=== PATIENT | male | born 1980 | race Caucasian/White ===

== ENCOUNTER 2016-09-27 14:18 | Emergency (ER) | payer OTHER ==
[~2016-09-27] VITALS: Ht 182.9 cm; Wt 106.9 kg
[~2016-09-27 14:18] MED LIST: BENTYL20 MG PO; FLEXERIL5 MG PO; LATUDA40 MG PO; LEVOFLOXACIN750 MG PO; LOMOTIL TABLET1 EACH PO; MOBIC7.5 MG PO; MOTRIN600 MG PO; MOTRIN800 MG PO; NAPROSYN500 MG PO; NEURONTIN100 MG PO; NORCO 5/3251 TABLET PO; OXYCODONE HCL5 MG PO; PROMETHAZINE HC25 M1 PO; TRAMADOL HCL50 MG PO; TRILEPTAL300 MG PO
[2016-09-27] MEDS ORDERED: LIDODERM 5% P1 PATCH TD (15:02)
[2016-09-27] MEDS ORDERED: INDOCIN50 MG PO (15:02)
[2016-09-27] MEDS ORDERED: PREDNISONE20 MG PO (15:02)
[2016-09-27 15:14] VITALS: BP 141/87
== END 2016-09-27 15:15 | disposition home or self-care (01) ==
LOC: EME 14:18
DX: S39.012A Strain of muscle, fascia and tendon of lower back, initial encounter (principal); M54.32 Sciatica, left side; M51.17 Intervertebral disc disorders with radiculopathy, lumbosacral region; G89.29 Other chronic pain; X50.0XXA Overexertion from strenuous movement or load, initial encounter; Y93.89 Activity, other specified; E11.9 Type 2 diabetes mellitus without complications; Z72.0 Tobacco use
CPT/HCPCS: 99281; 99283; J7512

== ENCOUNTER 2016-11-26 08:14 | Emergency (ER) | payer OTHER ==
[~2016-11-26] VITALS: Ht 182.9 cm; Wt 103.3 kg
[~2016-11-26 08:14] MED LIST changes: +INDOCIN50 MG PO; +LIDODERM 5% P1 PATCH TD; +PREDNISONE20 MG PO
[2016-11-26 09:15] LABS: ADD MIUA? YES; BILIRUBIN NEGATIVE; BLOOD LARGE; GLUCOSE (STRIP) NEGATIVE; KETONES NEGATIVE; LEUKOCYTES NEGATIVE; NITRITE NEGATIVE; PROTEIN (STRIP) 100; UROBILINOGEN 0.2 MG/DL (0.2-1.0)
[2016-11-26 09:16] LABS: COLOR LT.RED ((YELLOW))
[2016-11-26 09:44] LABS: BACTERIA RARE /HPF; CASTS NONE SEEN /LPF; CRYSTALS NONE SEEN; EPITHELIAL CELLS NONE SEEN /HPF; MUCUS NONE SEEN /LPF; RED BLOOD CELLS TNTC /HPF (0-5); UCUL ADDED? NO; WHITE BLOOD CELLS 0-5 /HPF (0-5)
[2016-11-26] MEDS ORDERED: ULTRAM50 MG PO (10:41)
[2016-11-26] MEDS ORDERED: LIDODERM 5% P1 PATCH TD (10:41)
[2016-11-26] MEDS ORDERED: FLEXERIL10 MG PO (10:41)
[2016-11-26 10:58] VITALS: BP 134/87
== END 2016-11-26 11:07 | disposition home or self-care (01) ==
LOC: EME 08:14
PROVIDERS: Nurse Practitioner Family
DX: M54.5 Low back pain (principal); N20.0 Calculus of kidney; E11.9 Type 2 diabetes mellitus without complications; F17.200 Nicotine dependence, unspecified, uncomplicated; Z88.0 Allergy status to penicillin
CPT/HCPCS: 72100; 74176; 81003; 99281; 99284; J1885

== ENCOUNTER 2016-12-16 15:24 | Emergency (ER) | payer OTHER ==
[~2016-12-16] VITALS: Ht 182.9 cm; Wt 99.4 kg
[~2016-12-16 15:24] MED LIST changes: +FLEXERIL10 MG PO; +ULTRAM50 MG PO
[2016-12-16] MEDS ORDERED: PERCOCET 5/31 TABLET PO (15:46)
[2016-12-16] MEDS ORDERED: BACTRIM,SEPT1 TABLET PO (15:46)
[2016-12-16 16:17] VITALS: BP 134/103
== END 2016-12-16 16:18 | disposition home or self-care (01) ==
LOC: EME 15:24
DX: S09.21XA Traumatic rupture of right ear drum, initial encounter (principal); W22.8XXA Striking against or struck by other objects, initial encounter; Y93.55 Activity, bike riding; E11.9 Type 2 diabetes mellitus without complications; F20.9 Schizophrenia, unspecified; F17.200 Nicotine dependence, unspecified, uncomplicated; F19.10 Other psychoactive substance abuse, uncomplicated; F10.10 Alcohol abuse, uncomplicated; Z88.0 Allergy status to penicillin
CPT/HCPCS: 99281; 99284

== ENCOUNTER 2017-02-01 11:31 | Emergency (ER) | payer OTHER ==
[~2017-02-01] VITALS: Ht 182.9 cm; Wt 98.0 kg
[~2017-02-01 11:31] MED LIST changes: +BACTRIM,SEPT1 TABLET PO; +PERCOCET 5/31 TABLET PO
[2017-02-01 12:01] LABS: EOSINOPHIL (%) 0.5 % (0-5); EOSINOPHIL COUNT 0.1 K/uL (0-0.3); HEMATOCRIT 48.9 % (38.0-50.0); IMMATURE GRANULOCYTE (%) 0.5 % (0.0-0.7); IMMATURE GRANULOCYTE COUNT 0.1 K/uL; LYMPHOCYTE COUNT 1.9 K/uL (1.0-2.8); MCH 33.2 PG (29.0-34.0); MEAN PLAT.VOLUME 8.9 uM^3 (9.0-12.4); MONOCYTE (%) 6.9 % (3-12); MONOCYTE COUNT 0.7 K/uL (0-0.8); NEUTROPHIL (%) 74.2 % (45-76); PLATELET COUNT 194 K/uL (156-360); RBC DIS.WIDTH-CV 12.5 % (11.8-14.6); RBC DIS.WIDTH-SD 44.2 % (39-53); RED BLOOD COUNT 5.15 M/uL (4.00-5.50); WHITE BLOOD COUNT 10.8 K/uL (4.1-10.2)
[2017-02-01 12:16] LABS: CHLORIDE 101 mEq/L (99-109); POTASSIUM 4.4 mEq/L (3.7-5.4); SODIUM 140 mEq/L (136-147)
[2017-02-01 12:18] LABS: GLUCOSE 158 mg/dL (70-99)
[2017-02-01 12:20] LABS: ANION GAP 18 MEQ/L (2-14)
[2017-02-01 12:22] LABS: GFR ESTIMATE (CALCULATED) > 59 mL/min/
[2017-02-01 12:23] LABS: UREA NITROGEN (BUN) 12 mg/dL (9-23)
[2017-02-01 12:26] LABS: TROP-I INTERPRETATION NEGATIVE; TROPONIN-I < 0.01 ng/mL (0.0-0.30)
[2017-02-01 13:19] LABS: D-DIMER ELISA < 150.00 ng/mLDDU (<230)
[2017-02-01] MEDS ORDERED: MOTRIN800 MG PO (13:29)
[2017-02-01 13:41] VITALS: BP 137/85
== END 2017-02-01 13:47 | disposition home or self-care (01) ==
LOC: EME 11:31
PROVIDERS: Emergency Medicine
DX: R07.81 Pleurodynia (principal); F41.9 Anxiety disorder, unspecified; E11.9 Type 2 diabetes mellitus without complications; F20.9 Schizophrenia, unspecified; Z88.0 Allergy status to penicillin; Z88.8 Allergy status to other drugs, medicaments and biological substances; F17.200 Nicotine dependence, unspecified, uncomplicated
CPT/HCPCS: 71010; 80048; 84484; 85025; 85379; 93005; 99281; 99284; J1885; J7030

== ENCOUNTER 2017-02-19 00:46 | Emergency (ER) | payer OTHER ==
[~2017-02-19] VITALS: Ht 182.9 cm
[2017-02-19] MEDS ORDERED: NORCO 5/3251 TABLET PO (03:18)
[2017-02-19 04:05] VITALS: BP 109/77
== END 2017-02-19 04:06 | disposition home or self-care (01) ==
LOC: EME 00:46
DX: S05.12XA Contusion of eyeball and orbital tissues, left eye, initial encounter (principal); Y04.2XXA Assault by strike against or bumped into by another person, initial encounter; E11.9 Type 2 diabetes mellitus without complications; F41.9 Anxiety disorder, unspecified; F20.9 Schizophrenia, unspecified; F19.10 Other psychoactive substance abuse, uncomplicated; F17.200 Nicotine dependence, unspecified, uncomplicated; Z88.0 Allergy status to penicillin
CPT/HCPCS: 70486; 99281; 99284

== ENCOUNTER 2017-03-01 00:20 | Inpatient (IN) | payer OTHER ==
[~2017-03-01] VITALS: Ht 185.4 cm; Wt 95.4 kg
[2017-03-01 02:17] LABS: HEMATOCRIT 45.7 % (38.0-50.0); MCH 33.5 PG (29.0-34.0); MCHC 34.6 G/DL (30.0-36.0); MCV 96.8 FL (86-99); MEAN PLAT.VOLUME 8.8 uM^3 (9.0-12.4); PLATELET COUNT 185 K/uL (156-360); RBC DIS.WIDTH-CV 12.5 % (11.8-14.6); RBC DIS.WIDTH-SD 45.1 % (39-53); RED BLOOD COUNT 4.72 M/uL (4.00-5.50); WHITE BLOOD COUNT 14.8 K/uL (4.1-10.2)
[2017-03-01 02:32] LABS: CHLORIDE 102 mEq/L (99-109); POTASSIUM 3.5 mEq/L (3.7-5.4); SODIUM 138 mEq/L (136-147)
[2017-03-01 02:34] LABS: GLUCOSE 177 mg/dL (70-99)
[2017-03-01 02:35] LABS: ANION GAP 11 MEQ/L (2-14)
[2017-03-01 02:37] LABS: SERUM ETHYL ALCOHOL < 10 mg/dL
[2017-03-01 02:38] LABS: GFR ESTIMATE (CALCULATED) > 59 mL/min/
[2017-03-01 02:39] LABS: UREA NITROGEN (BUN) 11 mg/dL (9-23)
[2017-03-01 04:02] LABS: ADD MIUA? NO; BILIRUBIN NEGATIVE; BLOOD NEGATIVE; COLOR YELLOW ((YELLOW)); GLUCOSE (STRIP) NEGATIVE; KETONES NEGATIVE; LEUKOCYTES NEGATIVE; NITRITE NEGATIVE; PROTEIN (STRIP) NEGATIVE; SPECIFIC GRAVITY 1.011 (1.000-1.030); UCUL ADDED? NO; UROBILINOGEN 0.2 MG/DL (0.2-1.0)
[2017-03-01 04:18] LABS: AMPHETAMINE NEGATIVE (500 ng/mL); BARBITURATES NEGATIVE (200 ng/mL); BENZODIAZEPINES NEGATIVE (150 ng/mL); COCAINE NEGATIVE (150 ng/mL); INTERNAL CONTROLS VALID? YES; METHADONE NEGATIVE (200 ng/mL); METHAMPHETAMINE NEGATIVE (500 ng/mL); OPIATES (MORPHINE) NEGATIVE (100 ng/mL); OXYCODONE PRESUMPTIVE POSITIVE (100 ng/mL); PHENCYCLIDINE NEGATIVE (25 ng/mL); PROPOXYPHENE NEGATIVE (300 ng/mL); THC CANNABINOIDS PRESUMPTIVE POSITIVE (50 ng/mL); TRICYCLIC ANTIDEPRESSANTS NEGATIVE (300 ng/mL)
[2017-03-01 04:19] LABS: ADD MEDTOX COMMENT Y
[2017-03-01 05:15] VITALS: BP 132/83
[2017-03-01 08:03] VITALS: BP 151/99
[2017-03-01 15:51] VITALS: BP 147/77
[2017-03-02 07:59] VITALS: BP 138/85
[2017-03-02 15:34] VITALS: BP 133/77
[2017-03-03 08:59] VITALS: BP 128/78
[2017-03-03] MEDS ORDERED: FLUOXETINE HCL20 MG PO (10:22)
[2017-03-03] MEDS ORDERED: ZIPRASIDONE HCL80 MG PO ×2 (10:22→10:28)
[2017-03-07] MEDS ORDERED: FLUOXETINE HCL20 MG PO (10:20)
[2017-03-07] MEDS ORDERED: ZIPRASIDONE HCL20 MG PO (10:21)
== END 2017-03-03 13:25 | disposition home or self-care (01) | DRG 885 ==
LOC: EME → EDBD 00:20 → EME 00:20 → 1WEST 03:11 → EDOF 03:11 → ENRESERV 04:06 → 1WEST 05:05
PROVIDERS: Emergency Medicine
DX: F25.9 Schizoaffective disorder, unspecified (principal); R45.851 Suicidal ideations; F10.10 Alcohol abuse, uncomplicated; F11.10 Opioid abuse, uncomplicated; F12.10 Cannabis abuse, uncomplicated; E11.9 Type 2 diabetes mellitus without complications; F17.200 Nicotine dependence, unspecified, uncomplicated
CPT/HCPCS: 80048; 81003; 84999; 85027; 90839; 97150 GO; 97165 GO; 99281; 99285; G0480

== ENCOUNTER 2017-03-15 14:58 | Inpatient (IN) | payer OTHER ==
[~2017-03-15] VITALS: Ht 182.9 cm; Wt 100.7 kg
[~2017-03-15 14:58] MED LIST changes: +FLUOXETINE HCL20 MG PO; +ZIPRASIDONE HCL20 MG PO; +ZIPRASIDONE HCL80 MG PO
[2017-03-15 15:45] LABS: CHLORIDE 104 mEq/L (99-109); SODIUM 139 mEq/L (136-147)
[2017-03-15 15:46] LABS: MAGNESIUM 2.1 mg/dL (1.3-2.7)
[2017-03-15 15:48] LABS: GLUCOSE 155 mg/dL (70-99)
[2017-03-15 15:49] LABS: ANION GAP 11 MEQ/L (2-14); TOTAL BILIRUBIN 0.5 mg/dL (0.0-1.0)
[2017-03-15 15:50] LABS: SERUM ETHYL ALCOHOL 25 mg/dL
[2017-03-15 15:51] LABS: GFR ESTIMATE (CALCULATED) > 59 mL/min/
[2017-03-15 15:52] LABS: ALKALINE PHOSPHATASE 89 IU/L (3-129)
[2017-03-15 15:53] LABS: BASOPHIL COUNT 0.1 K/uL (0-0.1); EOSINOPHIL (%) 0.3 % (0-5); HEMATOCRIT 46.9 % (38.0-50.0); IMMATURE GRANULOCYTE (%) 0.6 % (0.0-0.7); IMMATURE GRANULOCYTE COUNT 0.1 K/uL; INSTRUMENT ABS NEUTROPHIL CT 7.4 K/uL; LYMPHOCYTE COUNT 3.1 K/uL (1.0-2.8); MCH 33.9 PG (29.0-34.0); MCHC 35.6 G/DL (30.0-36.0); MCV 95.1 FL (86-99); MEAN PLAT.VOLUME 9.2 uM^3 (9.0-12.4); MONOCYTE (%) 7.6 % (3-12); MONOCYTE COUNT 0.9 K/uL (0-0.8); NEUTROPHIL (%) 64.2 % (45-76); NEUTROPHIL COUNT 7.4 K/uL (1.8-6.4); PLATELET COUNT 195 K/uL (156-360); RBC DIS.WIDTH-CV 11.9 % (11.8-14.6); RBC DIS.WIDTH-SD 41.3 % (39-53); RED BLOOD COUNT 4.93 M/uL (4.00-5.50); WHITE BLOOD COUNT 11.5 K/uL (4.1-10.2)
[2017-03-15 15:53] LABS: UREA NITROGEN (BUN) 11 mg/dL (9-23)
[2017-03-15 15:55] LABS: SALICYLATE < 5.0 MG/DL (15-30)
[2017-03-15 19:19] LABS: ADD MIUA? YES; BILIRUBIN NEGATIVE; BLOOD NEGATIVE; COLOR YELLOW ((YELLOW)); GLUCOSE (STRIP) NEGATIVE; KETONES 5; LEUKOCYTES NEGATIVE; NITRITE NEGATIVE; PROTEIN (STRIP) NEGATIVE; SPECIFIC GRAVITY 1.015 (1.000-1.030)
[2017-03-15 19:39] VITALS: BP 136/93
[2017-03-15 19:41] LABS: BACTERIA NONE SEEN /HPF; EPITHELIAL CELLS RARE /HPF; MUCUS NONE SEEN /LPF; RED BLOOD CELLS 0-5 /HPF (0-5); UCUL ADDED? NO; WHITE BLOOD CELLS 0-5 /HPF (0-5)
[2017-03-15 19:48] LABS: AMPHETAMINE NEGATIVE (500 ng/mL); BARBITURATES NEGATIVE (200 ng/mL); BENZODIAZEPINES PRESUMPTIVE POSITIVE (150 ng/mL); COCAINE NEGATIVE (150 ng/mL); INTERNAL CONTROLS VALID? YES; METHADONE NEGATIVE (200 ng/mL); METHAMPHETAMINE NEGATIVE (500 ng/mL); OPIATES (MORPHINE) NEGATIVE (100 ng/mL); OXYCODONE NEGATIVE (100 ng/mL); PHENCYCLIDINE NEGATIVE (25 ng/mL); PROPOXYPHENE NEGATIVE (300 ng/mL); THC CANNABINOIDS PRESUMPTIVE POSITIVE (50 ng/mL); TRICYCLIC ANTIDEPRESSANTS NEGATIVE (300 ng/mL)
[2017-03-15 19:49] LABS: ADD MEDTOX COMMENT Y
[2017-03-15 20:12] LABS: BENZODIAZEPINES QUANT VALUE 0 NG/ML; BENZODIAZEPINES, URINE SCREEN Negative (200 ng/mL)
[2017-03-15 20:19] VITALS: BP 136/93
[2017-03-16 07:42] VITALS: BP 116/66
[2017-03-16 15:14] VITALS: BP 104/68
[2017-03-17 07:52] VITALS: BP 119/67
[2017-03-17 15:29] VITALS: BP 115/80
[2017-03-18 07:37] VITALS: BP 112/56
[2017-03-18] MEDS ORDERED: OLANZAPINE10 MG PO (13:12)
[2017-03-18] MEDS ORDERED: SERTRALINE HCL50 MG PO (13:12)
== END 2017-03-18 13:39 | disposition home or self-care (01) | DRG 885 ==
LOC: EME 14:58 → 1WEST 17:56 → EDOF 17:56 → ENRESERV 18:48 → 1WEST 19:33
PROVIDERS: Emergency Medicine
DX: F25.1 Schizoaffective disorder, depressive type (principal); R45.851 Suicidal ideations; F33.9 Major depressive disorder, recurrent, unspecified; Z68.1 Body mass index [BMI] 19.9 or less, adult; F11.20 Opioid dependence, uncomplicated; F17.210 Nicotine dependence, cigarettes, uncomplicated; Y90.1 Blood alcohol level of 20-39 mg/100 ml; Z91.14 Patient's other noncompliance with medication regimen; G47.00 Insomnia, unspecified; E11.9 Type 2 diabetes mellitus without complications; R63.0 Anorexia; F10.229 Alcohol dependence with intoxication, unspecified; F41.9 Anxiety disorder, unspecified; Z91.5 Personal history of self-harm; Z56.0 Unemployment, unspecified; Z73.6 Limitation of activities due to disability; Z88.0 Allergy status to penicillin; Z88.5 Allergy status to narcotic agent; Z91.013 Allergy to seafood; Z91.19 Patient's noncompliance with other medical treatment and regimen; Z87.442 Personal history of urinary calculi; Z59.0 Homelessness
CPT/HCPCS: 80048; 80053; 81003; 83735; 84999; 85025; 85025 GA; 85027; 90837; 97150 GO; 99281; 99283; G0480; Q0177

== ENCOUNTER 2017-05-14 07:33 | Emergency (ER) | payer OTHER ==
[~2017-05-14] VITALS: Ht 182.9 cm; Wt 109.9 kg
[~2017-05-14 07:33] MED LIST changes: +OLANZAPINE10 MG PO; +SERTRALINE HCL50 MG PO
[2017-05-14 08:04] LABS: BASOPHIL (%) 0.4 % (0-1); BASOPHIL COUNT 0.1 K/uL (0-0.1); EOSINOPHIL (%) 0.4 % (0-5); EOSINOPHIL COUNT 0.1 K/uL (0-0.3); HEMATOCRIT 47.2 % (38.0-50.0); IMMATURE GRANULOCYTE (%) 0.8 % (0.0-0.7); LYMPHOCYTE (%) 8.7 % (15-42); LYMPHOCYTE COUNT 1.5 K/uL (1.0-2.8); MCH 32.9 PG (29.0-34.0); MCHC 33.9 G/DL (30.0-36.0); MCV 96.9 FL (86-99); MONOCYTE (%) 6.6 % (3-12); MONOCYTE COUNT 1.1 K/uL (0-0.8); NEUTROPHIL (%) 83.1 % (45-76); NEUTROPHIL COUNT 14.1 K/uL (1.8-6.4); PLATELET COUNT 230 K/uL (156-360); RBC DIS.WIDTH-CV 11.9 % (11.8-14.6); RBC DIS.WIDTH-SD 42.3 % (39-53); RED BLOOD COUNT 4.87 M/uL (4.00-5.50)
[2017-05-14 08:17] LABS: CHLORIDE 105 mEq/L (99-109); POTASSIUM 4.2 mEq/L (3.7-5.4); SODIUM 141 mEq/L (136-147)
[2017-05-14 08:19] LABS: GLUCOSE 192 mg/dL (70-99); TOTAL PROTEIN 7.8 g/dL (6.4-8.3)
[2017-05-14 08:21] LABS: TOTAL BILIRUBIN 0.7 mg/dL (0.0-1.0)
[2017-05-14 08:23] LABS: ALKALINE PHOSPHATASE 107 IU/L (3-129); GFR ESTIMATE (CALCULATED) > 59 mL/min/ (58.99-99999)
[2017-05-14 08:24] LABS: UREA NITROGEN (BUN) 11 mg/dL (9-23)
[2017-05-14 08:25] LABS: AST (GOT) 20 IU/L (2-34)
[2017-05-14 08:26] LABS: ALT (GPT) 32 IU/L (3-49)
[2017-05-14 08:29] LABS: ALBUMIN 4.4 g/dL (3.2-4.8)
[2017-05-14] MEDS ORDERED: ZITHROMAX250 MG PO (09:30)
[2017-05-14 09:51] VITALS: BP 113/71
== END 2017-05-14 09:56 | disposition home or self-care (01) ==
LOC: EME 07:33
PROVIDERS: Emergency Medicine
DX: J06.9 Acute upper respiratory infection, unspecified (principal); I10 Essential (primary) hypertension; Z88.0 Allergy status to penicillin; Z88.8 Allergy status to other drugs, medicaments and biological substances; Z59.0 Homelessness
CPT/HCPCS: 71046; 80053; 83605; 85025; 87502; 99281; 99285; J1885; J7030

== ENCOUNTER 2017-06-14 17:17 | Emergency (ER) | payer OTHER ==
[~2017-06-14] VITALS: Ht 185.4 cm; Wt 104.4 kg
[~2017-06-14 17:17] MED LIST changes: +ZITHROMAX250 MG PO
[2017-06-14 17:40] LABS: HEMATOCRIT 50.4 % (38.0-50.0); HEMOGLOBIN 17.2 G/DL (12.5-16.6); MCH 32.4 PG (29.0-34.0); MCHC 34.1 G/DL (30.0-36.0); MCV 94.9 FL (86-99); PLATELET COUNT 203 K/uL (156-360); RBC DIS.WIDTH-CV 12.4 % (11.8-14.6); RBC DIS.WIDTH-SD 42.6 % (39-53); RED BLOOD COUNT 5.31 M/uL (4.00-5.50); WHITE BLOOD COUNT 8.4 K/uL (4.1-10.2)
[2017-06-14 17:48] LABS: ALBUMIN 4.8 g/dL (3.2-4.8); CHLORIDE 105 mEq/L (99-109); POTASSIUM 3.8 mEq/L (3.7-5.4); SODIUM 144 mEq/L (136-147)
[2017-06-14 17:50] LABS: GLUCOSE 161 mg/dL (70-99); TOTAL PROTEIN 8.5 g/dL (6.4-8.3)
[2017-06-14 17:52] LABS: TOTAL BILIRUBIN 0.4 mg/dL (0.0-1.0)
[2017-06-14 17:53] LABS: SERUM ETHYL ALCOHOL 335 mg/dL
[2017-06-14 17:54] LABS: ALKALINE PHOSPHATASE 135 IU/L (3-129); GFR ESTIMATE (CALCULATED) > 59 mL/min/ (58.99-99999)
[2017-06-14 17:55] LABS: AST (GOT) 38 IU/L (2-34)
[2017-06-14 17:56] LABS: UREA NITROGEN (BUN) 10 mg/dL (9-23)
[2017-06-14 17:57] LABS: SALICYLATE < 5.0 MG/DL (15-30)
[2017-06-14 17:58] LABS: ACETAMINOPHEN (TYLENOL) < 10 mcg/mL (10-30); ALT (GPT) 53 IU/L (3-49)
[2017-06-14 18:34] LABS: ABS NEUTROPHIL COUNT 3.8; ANISOCYTOSIS 1+; ATYPICAL LYMPHOCYTE 14.9 %; BASOPHILS 0.9 %; EOSINOPHIL ABS CT 0.1; EOSINOPHILS 0.9 % (0-5.0); LYMPHOCYTES 28.9 % (15.0-45.0); MONOCYTES 8.8 % (0-9.0); SEG.NEUTROPHILS 45.6 % (46.0-76.0)
[2017-06-14 19:32] LABS: APPEARANCE CLEAR ((CLEAR)); BILIRUBIN NEGATIVE; BLOOD NEGATIVE; COLOR STRAW ((YELLOW)); GLUCOSE (STRIP) NEGATIVE; KETONES 5; LEUKOCYTES NEGATIVE; NITRITE NEGATIVE; PROTEIN (STRIP) NEGATIVE; SPECIFIC GRAVITY 1.003 (1.000-1.030); UROBILINOGEN 0.2 MG/DL (0.2-1.0)
[2017-06-14 19:40] LABS: AMPHETAMINE NEGATIVE (500 ng/mL); BARBITURATES NEGATIVE (200 ng/mL); BENZODIAZEPINES PRESUMPTIVE POSITIVE (150 ng/mL); BUPRENORPHINE NEGATIVE (10 ng/mL); COCAINE NEGATIVE (150 ng/mL); METHADONE NEGATIVE (200 ng/mL); METHAMPHETAMINE NEGATIVE (500 ng/mL); OPIATES (MORPHINE) NEGATIVE (100 ng/mL); OXYCODONE NEGATIVE (100 ng/mL); PHENCYCLIDINE NEGATIVE (25 ng/mL); PROPOXYPHENE NEGATIVE (300 ng/mL); THC CANNABINOIDS PRESUMPTIVE POSITIVE (50 ng/mL); TRICYCLIC ANTIDEPRESSANTS NEGATIVE (300 ng/mL)
[2017-06-14 20:02] LABS: BENZODIAZEPINES, URINE SCREEN Negative (200 ng/mL)
[2017-06-14 23:14] VITALS: BP 116/90
== END 2017-06-14 23:32 | disposition home or self-care (01) ==
LOC: EME 17:17
PROVIDERS: Emergency Medicine
DX: F10.129 Alcohol abuse with intoxication, unspecified (principal); R91.8 Other nonspecific abnormal finding of lung field; R93.0 Abnormal findings on diagnostic imaging of skull and head, not elsewhere classified; Y90.8 Blood alcohol level of 240 mg/100 ml or more; F17.200 Nicotine dependence, unspecified, uncomplicated
CPT/HCPCS: 70450; 71045; 80053; 81003; 84999; 85025; 93005; 99281; 99285; G0480; J7030

== ENCOUNTER 2017-12-10 00:29 | Inpatient (IN) | payer OTHER ==
[~2017-12-10] VITALS: Ht 182.9 cm; Wt 100.3 kg
[2017-12-10 02:18] LABS: HEMATOCRIT 47.2 % (38.0-50.0); MCH 33.7 PG (29.0-34.0); MCV 93.5 FL (86-99); PLATELET COUNT 257 K/uL (156-360); RBC DIS.WIDTH-CV 12.5 % (11.8-14.6); RBC DIS.WIDTH-SD 42.9 % (39-53); RED BLOOD COUNT 5.05 M/uL (4.00-5.50); WHITE BLOOD COUNT 11.9 K/uL (4.1-10.2)
[2017-12-10 02:31] LABS: CHLORIDE 102 mEq/L (99-109); POTASSIUM 4.3 mEq/L (3.7-5.4); SODIUM 138 mEq/L (136-147)
[2017-12-10 02:33] LABS: GLUCOSE 307 mg/dL (70-99)
[2017-12-10 02:36] LABS: SERUM ETHYL ALCOHOL 276 mg/dL
[2017-12-10 02:37] LABS: CREATININE 1.1 mg/dL (0.6-1.3); GFR ESTIMATE (CALCULATED) > 59 mL/min/ (58.99-99999)
[2017-12-10 02:38] LABS: UREA NITROGEN (BUN) 10 mg/dL (9-23)
[2017-12-10 02:40] LABS: ACETAMINOPHEN (TYLENOL) < 10 mcg/mL (10-30); SALICYLATE < 5.0 MG/DL (15-30)
[2017-12-10 11:52] LABS: APPEARANCE CLEAR ((CLEAR)); BILIRUBIN NEGATIVE; BLOOD NEGATIVE; COLOR YELLOW ((YELLOW)); GLUCOSE (STRIP) >=500; KETONES NEGATIVE; LEUKOCYTES SMALL; NITRITE NEGATIVE; PROTEIN (STRIP) NEGATIVE; SPECIFIC GRAVITY 1.023 (1.000-1.030); UROBILINOGEN 0.2 MG/DL (0.2-1.0)
[2017-12-10 11:57] LABS: BACTERIA NONE SEEN /HPF; EPITHELIAL CELLS RARE /HPF; MUCUS NONE SEEN /LPF; RED BLOOD CELLS 0-5 /HPF (0-5)
[2017-12-10 12:02] LABS: AMPHETAMINE NEGATIVE (500 ng/mL); BARBITURATES NEGATIVE (200 ng/mL); BENZODIAZEPINES NEGATIVE (150 ng/mL); BUPRENORPHINE NEGATIVE (10 ng/mL); COCAINE NEGATIVE (150 ng/mL); METHADONE NEGATIVE (200 ng/mL); METHAMPHETAMINE NEGATIVE (500 ng/mL); OPIATES (MORPHINE) NEGATIVE (100 ng/mL); OXYCODONE NEGATIVE (100 ng/mL); PHENCYCLIDINE NEGATIVE (25 ng/mL); PROPOXYPHENE NEGATIVE (300 ng/mL); THC CANNABINOIDS PRESUMPTIVE POSITIVE (50 ng/mL); TRICYCLIC ANTIDEPRESSANTS NEGATIVE (300 ng/mL)
[2017-12-10 15:46] VITALS: BP 135/80
[2017-12-11 08:04] VITALS: BP 115/76
[2017-12-11 11:21] LABS: ALBUMIN 4.3 G/DL (3.2-4.8); ALKALINE PHOSPHATASE 160 IU/L (3-129); ALT (GPT) 209 IU/L (3-49); AST (GOT) 42 IU/L (2-34); DIRECT BILIRUBIN 0.2 mg/dL (0.0-0.3); TOTAL BILIRUBIN 1.2 MG/DL (0.0-1.0); TOTAL PROTEIN 7.4 G/DL (6.4-8.3)
[2017-12-11 16:12] VITALS: BP 137/91
[2017-12-12 08:09] VITALS: BP 134/81
[2017-12-12 15:21] VITALS: BP 132/87
[2017-12-13 09:29] VITALS: BP 131/75
[2017-12-13 16:08] VITALS: BP 111/65
[2017-12-14 07:44] VITALS: BP 120/62
[2017-12-14 16:17] VITALS: BP 120/66
[2017-12-15 07:45] VITALS: BP 104/67
[2017-12-15 15:19] VITALS: BP 116/71
[2017-12-16 07:47] VITALS: BP 108/73
[2017-12-16 15:22] VITALS: BP 114/69
[2017-12-17 07:48] VITALS: BP 117/73
[2017-12-17 16:37] VITALS: BP 110/56
[2017-12-18 07:51] VITALS: BP 105/62
[2017-12-18] MEDS ORDERED: SERTRALINE HCL100 MG PO (10:19)
[2017-12-18] MEDS ORDERED: OLANZAPINE10 MG PO (10:19)
== END 2017-12-18 12:28 | disposition home or self-care (01) | DRG 885 ==
LOC: EME 00:29 → EDOF 12:58 → 1WEST 12:58 → ENRESERV 15:35 → 1WEST 12-18 12:28
PROVIDERS: Physician Assistant; Psychiatry & Neurology Psychiatry
DX: F33.1 Major depressive disorder, recurrent, moderate (principal); R45.851 Suicidal ideations; F60.9 Personality disorder, unspecified; Z59.0 Homelessness; F10.129 Alcohol abuse with intoxication, unspecified; Y90.8 Blood alcohol level of 240 mg/100 ml or more; F12.90 Cannabis use, unspecified, uncomplicated; F17.210 Nicotine dependence, cigarettes, uncomplicated; R45.850 Homicidal ideations; Z91.19 Patient's noncompliance with other medical treatment and regimen; I10 Essential (primary) hypertension; G89.29 Other chronic pain; F79 Unspecified intellectual disabilities; Z76.5 Malingerer [conscious simulation]
CPT/HCPCS: 80048; 80076; 81003; 84999; 85027; 90839; 97150 GO; 97165 GO; 99281; 99285; G0480

== ENCOUNTER 2017-12-24 20:46 | Inpatient (IN) | payer OTHER ==
[~2017-12-24] VITALS: Ht 182.9 cm; Wt 104.5 kg
[~2017-12-24 20:46] MED LIST changes: +SERTRALINE HCL100 MG PO
[2017-12-24 21:43] LABS: HEMATOCRIT 39.9 % (38.0-50.0); HEMOGLOBIN 14.1 G/DL (12.5-16.6); MCH 33.6 PG (29.0-34.0); MCHC 35.3 G/DL (30.0-36.0); PLATELET COUNT 202 K/uL (156-360); RBC DIS.WIDTH-CV 12.1 % (11.8-14.6); RBC DIS.WIDTH-SD 41.9 % (39-53); WHITE BLOOD COUNT 8.8 K/uL (4.1-10.2)
[2017-12-24 21:46] LABS: AMPHETAMINE NEGATIVE (500 ng/mL); BARBITURATES NEGATIVE (200 ng/mL); BENZODIAZEPINES NEGATIVE (150 ng/mL); BUPRENORPHINE NEGATIVE (10 ng/mL); COCAINE NEGATIVE (150 ng/mL); METHADONE NEGATIVE (200 ng/mL); METHAMPHETAMINE NEGATIVE (500 ng/mL); OPIATES (MORPHINE) NEGATIVE (100 ng/mL); OXYCODONE NEGATIVE (100 ng/mL); PHENCYCLIDINE NEGATIVE (25 ng/mL); PROPOXYPHENE NEGATIVE (300 ng/mL); THC CANNABINOIDS PRESUMPTIVE POSITIVE (50 ng/mL); TRICYCLIC ANTIDEPRESSANTS NEGATIVE (300 ng/mL)
[2017-12-24 21:52] LABS: CHLORIDE 103 mEq/L (99-109); POTASSIUM 4.1 mEq/L (3.7-5.4); SODIUM 137 mEq/L (136-147)
[2017-12-24 21:54] LABS: GLUCOSE 366 mg/dL (70-99)
[2017-12-24 21:57] LABS: SERUM ETHYL ALCOHOL 153 mg/dL
[2017-12-24 21:58] LABS: CREATININE 0.9 mg/dL (0.6-1.3); GFR ESTIMATE (CALCULATED) > 59 mL/min/ (58.99-99999)
[2017-12-24 22:00] LABS: UREA NITROGEN (BUN) 10 mg/dL (9-23)
[2017-12-24 22:01] LABS: ACETAMINOPHEN (TYLENOL) < 10 mcg/mL (10-30); SALICYLATE < 5.0 MG/DL (15-30)
[2017-12-25 02:35] VITALS: BP 122/78
[2017-12-25 03:16] VITALS: BP 124/81
[2017-12-25 07:42] VITALS: BP 141/87
[2017-12-25 16:16] VITALS: BP 125/80
[2017-12-26 08:00] VITALS: BP 138/83
[2017-12-26] MEDS ORDERED: ARIPIPRAZOLE5 MG PO (11:03)
== END 2017-12-26 12:30 | disposition home or self-care (01) | DRG 881 ==
LOC: EME → EDBD 20:46 → EME 20:46 → 1WEST 12-25 00:13 → EDOF 12-25 00:13 → 1WEST 12-25 00:13 → ENRESERV 12-25 02:19 → 1WEST 12-25 02:20
PROVIDERS: Emergency Medicine
DX: F32.9 Major depressive disorder, single episode, unspecified (principal); R45.851 Suicidal ideations; F60.9 Personality disorder, unspecified; F10.129 Alcohol abuse with intoxication, unspecified; Y90.6 Blood alcohol level of 120-199 mg/100 ml; I10 Essential (primary) hypertension; E11.9 Type 2 diabetes mellitus without complications; F20.9 Schizophrenia, unspecified; F12.90 Cannabis use, unspecified, uncomplicated; F17.210 Nicotine dependence, cigarettes, uncomplicated; Z59.0 Homelessness; Z91.5 Personal history of self-harm
CPT/HCPCS: 80048; 84999; 85027; 90839; 99281; 99285; G0480